=== PATIENT | male | born 1955 | race Caucasian/White ===

== ENCOUNTER 2017-03-07 09:55 | Emergency (ER) | payer MEDICAID ==
[~2017-03-07] VITALS: Ht 172.7 cm; Wt 72.6 kg
--- NOTE | 2017-03-07 10:27 | NUR ---
PT AMBULATORY TO RE BED 4 WITH COMPLAINTS OF INTERMITTENT LLQ ABDOMINAL PAIN 9/10, NON RADIATING X 1 WEEK WITH ASSOCIATED NAUSEA AND VOMITING X 2 EPISODES. PT DENIES ANY BLOOD IN VOMIT , DENIES DIARRHEA, BUT STATES HE HAS HAD SOFT STOOLS. PT STATES HE HAS HAD HISTORY OF HERNIA REPAIR WITH MESH TO AREA OF PAIN. PT ABDOMEN IS SOFT, NON TENDER, AND NON DISTENDED. PT APPEARS IN NO ACUTE DISTRESS WITH NO FACIAL GRIMACING OR GUARDING. PT IS RESTING COMFORTABLY IN BED 4 TALKING ON CELLULAR PHONE, AWAITING MD SOLOMON
--- NOTE | 2017-03-07 10:33 | NUR ---
PT REFUSED TO PROVIDE URINE SAMPLE AT THIS TIME AND STATES "IT'S GOING TO BE A LONG TIME BEFORE I CAN PEE, I CAN'T EVEN TRY, I NEED LOTS AND LOTS OF WATER"
--- NOTE | 2017-03-07 10:55 | NUR ---
PATIENT TAKEN TO CT VIA STRETCHER.
[2017-03-07] MEDS ORDERED: MORPHINE SULFATE INJ 2 MG/ML DISP.SYRIN IV ONE (11:00)
[2017-03-07] MEDS ORDERED: IV NS 0.9% 1,000 ML BAG IV ONE (11:00)
[2017-03-07] MEDS ORDERED: ONDANSETRON HCL/PF 4 MG/2 ML VIAL IVP ONE (11:00)
[2017-03-07] MEDS ORDERED: ONDANSETRON HCL/PF 4 MG/2 ML VIAL ONE (11:01)
[2017-03-07] MEDS ORDERED: MORPHINE SULFATE INJ 4 MG/ML DISP.SYRIN ONE (11:02)
[2017-03-07] MEDS ORDERED: MORPHINE SULFATE INJ 2 MG/ML DISP.SYRIN ONE (11:02)
--- NOTE | 2017-03-07 11:05 | NUR ---
PATIENT RETURNED FROM CT IN STABLE CONDITION.
[2017-03-07 11:11] LABS: BASOPHILS % (AUTO) 0.3 % (0.0-2.0); EOSINOPHILS # (AUTO) 0.1 /CMM (0.0-0.7); EOSINOPHILS % (AUTO) 0.8 % (0.0-6.0); HEMATOCRIT 43 % (39-51); HEMOGLOBIN 14.7 g/dL (13.5-17.5); LYMPHOCYTES # (AUTO) 1.1 /CMM (0.8-4.8); LYMPHOCYTES % (AUTO) 13.3 % (20.0-44.0); MEAN CORPUSCULAR HEMOGLOBIN 32 PG (26.0-33.0); MEAN CORPUSCULAR HGB CONC 34 g/dl (31.0-36.0); MEAN CORPUSCULAR VOLUME 93 fL (80-96); MONOCYTES % (AUTO) 11.9 % (2.0-12.0); NEUTROPHILS # (AUTO) 6.1 /CMM (1.8-8.9); NEUTROPHILS % (AUTO) 73.7 % (43.0-81.0); PLATELET COUNT (AUTO) 256 /CMM (150-450); RED BLOOD CELL COUNT(AUTO) 4.63 MIL/uL (4.5-6.0); WHITE BLOOD COUNT (AUTO) 8.3 K/uL (4.3-11.0)
--- NOTE | 2017-03-07 11:12 | NUR ---
NEW IV STARTED ON LAC, 18 G. BLOOD DRAWN AND SENT TO LAB. PATIENT MEDICATED PER MD ORDERS.
[2017-03-07 11:23] LABS: CALCIUM, SERUM 8.7 mg/dL (8.5-10.1); POTASSIUM 3.9 mmol/L (3.5-5.1)
[2017-03-07 11:28] LABS: INR 0.89 (0.87-1.13); PROTHROMBIN TIME 9.3 SECS (9.5-12.7)
--- NOTE | 2017-03-07 12:04 | NUR ---
URINE OBTAINED AND SENT TO LAB
[2017-03-07 12:48] LABS: APPEARANCE,URINE Turbid (CLEAR); BILIRUBIN,URINE Negative (NEGATIVE); BLOOD, URINE Moderate Ery/uL (NEGATIVE); COLOR,URINE Yellow (YELLOW); KETONES,URINE Negative (NEGATIVE); LEUKOCYTE ESTERASE ,URINE Large (NEGATIVE); NITRITE, URINE Positive (NEGATIVE); PROTEIN,URINE Trace mg/dl (NEGATIVE); UGLUCOSE Negative (NEGATIVE); UROBILINOGEN,URINE 0.2 EU/dL (0.2)
[2017-03-07 12:54] LABS: BACTERIA,URINE Moderate /HPF (None Seen); SQUAMOUS EPITHELIAL CELL,UR Few /HPF (None Seen); WBC,URINE 81-100 /HPF (0-3)
[2017-03-07 13:47] VITALS: BP 132/74
--- NOTE | 2017-03-07 13:55 | NUR ---
IV removed. Catheter intact and site benign. Pressure and 4x4 applied to site. No bleeding noted. Patient discharged to home in stable condition. Written and verbal after care instructions given. Patient verbalizes understanding of instruction.
== END 2017-03-07 13:55 | disposition home or self-care (01) ==
LOC: ER 09:58
DX: N12 Tubulo-interstitial nephritis, not specified as acute or chronic (principal); F17.200 Nicotine dependence, unspecified, uncomplicated; Z88.1 Allergy status to other antibiotic agents; Z88.6 Allergy status to analgesic agent; Z88.8 Allergy status to other drugs, medicaments and biological substances
CPT/HCPCS: 36415; 80048-TC; 81000-TC; 85025-TC; 85730-TC; 87086-TC; 87186-TC; A4606; J2270; J2405; J7030; Z7610